=== PATIENT | female | born 1950 | race Two or more races ===

== ENCOUNTER 2018-02-18 02:04 | Emergency (ER) | payer MEDICARE ==
[~2018-02-18] VITALS: Ht 154.9 cm; Wt 58.3 kg
[2018-02-18 02:07] VITALS: BP 129/56
[2018-02-18] MEDS ORDERED: ACETAMINOPHEN 500 MG TABLET ONE (03:39)
[2018-02-18] MEDS ORDERED: ACETAMINOPHEN 500 MG TABLET PO ONE (04:00)
== END 2018-02-18 03:58 | disposition home or self-care (01) ==
LOC: ED 03:42
DX: S46.912A Strain of unspecified muscle, fascia and tendon at shoulder and upper arm level, left arm, initial encounter (principal); X58.XXXA Exposure to other specified factors, initial encounter; Y93.89 Activity, other specified; Y92.009 Unspecified place in unspecified non-institutional (private) residence as the place of occurrence of the external cause; Y99.8 Other external cause status
CPT/HCPCS: 99284